=== PATIENT | male | born 1970 | race Caucasian/White ===

== ENCOUNTER 2017-08-16 08:20 | Observation (INO) | payer MEDICAID ==
[~2017-08-16] VITALS: Ht 182.9 cm; Wt 76.0 kg
[2017-08-16 09:26] LABS: HEMATOCRIT 43.5 % (39.2-51.8); HEMOGLOBIN 14.7 g/dL (13.7-18.0); WHITE BLOOD COUNT 7.9 x10^3/uL (3.4-10)
[2017-08-16 09:39] LABS: ASPARTATE AMINO TRANSFERASE 42 U/L (15-37); BLOOD UREA NITROGEN 12 mg/dL (7-18)
[2017-08-16 09:41] LABS: ACETAMINOPHEN < 2 mcg/mL (10-30)
[2017-08-16 11:20] LABS: DAU SCREEN DISCLAIMER
[2017-08-16] MEDS ORDERED: LORazepam 1MG TABLET PO ONE (19:30)
[2017-08-16] MEDS: PLEASE ENTER ALLERGIES MC SCH ×2 (20:00)
[2017-08-16] MEDS ORDERED: DOCUSATE 100 MG CAPSULE PO PRN (23:00)
[2017-08-16] MEDS ORDERED: ZIPRASIDONE 20 MG INJ IM PRN (23:00)
[2017-08-16] MEDS ORDERED: ACETAMINOPHEN 325 MG TABLET PO PRN (23:00)
[2017-08-16] MEDS ORDERED: QUETIAPINE 25MG TABLET PO PRN (23:00)
[2017-08-17] MEDS ORDERED: SENNA/DOCUSATE TABLET PO SCH (09:00)
[2017-08-17] MEDS ORDERED: GABA300C10 PO (16:04)
[2017-08-17] MEDS ORDERED: LEVE500T53 PO (16:04)
[2017-08-17] MEDS ORDERED: ESCI20TA10 PO (16:04)
[2017-08-17] MEDS: PLEASE ENTER ALLERGIES MC SCH ×2 (16:46)
[2017-08-17] MEDS ORDERED: LORazepam 1MG TABLET ONE (17:11)
[2017-08-17 22:27] VITALS: BP 118/69
== END 2017-08-17 22:28 ==
LOC: ED 13:28 → EDIP 19:13 → INTOOBSV 19:13
PROVIDERS: ADMIT Surgery; ATTEND Surgery
DX: T42.6X2A Poisoning by other antiepileptic and sedative-hypnotic drugs, intentional self-harm, initial encounter (principal); T43.222A Poisoning by selective serotonin reuptake inhibitors, intentional self-harm, initial encounter; T39.312A Poisoning by propionic acid derivatives, intentional self-harm, initial encounter; R56.9 Unspecified convulsions; F33.2 Major depressive disorder, recurrent severe without psychotic features; F10.220 Alcohol dependence with intoxication, uncomplicated; F15.20 Other stimulant dependence, uncomplicated; F17.210 Nicotine dependence, cigarettes, uncomplicated; Y92.89 Other specified places as the place of occurrence of the external cause; Z87.820 Personal history of traumatic brain injury; F10.10 Alcohol abuse, uncomplicated
CPT/HCPCS: 36415; 80053; 80177; 80307; 80329; 81003; 82140; 85025; 93005; 99285; G0378; G0479; G0480

== ENCOUNTER 2017-10-10 23:55 | Emergency (ER) | payer MEDICAID ==
[~2017-10-10] VITALS: Ht 188 cm; Wt 73.0 kg
[2017-10-10 23:55] VITALS: BP 132/74
[~2017-10-10 23:55] MED LIST: ESCI20TA10 PO; GABA300C10 PO; LEVE500T53 PO
[2017-10-11] MEDS ORDERED: LEVETIRACETAM 500 MG TABLET PO STA (00:06)
== END 2017-10-11 02:02 | disposition home or self-care (01) ==
LOC: ED 10-11 00:33 → MERGE 10-11 00:33 → ED 10-11 02:02
DX: Z76.0 Encounter for issue of repeat prescription (principal); F10.220 Alcohol dependence with intoxication, uncomplicated
CPT/HCPCS: 99283

== ENCOUNTER 2017-10-13 04:47 | Emergency (ER) | payer MEDICAID ==
[~2017-10-13] VITALS: Ht 182.9 cm; Wt 72.6 kg
[2017-10-13] MEDS ORDERED: LEVE500T53 PO (05:02)
[2017-10-13] MEDS ORDERED: GABA300C10 PO (05:02)
[2017-10-13] MEDS ORDERED: DIPH,PERTUSS(ACELL),TET VAC/PF 0.5 ML IM-VACC ONE ×2 (05:28→05:30)
[2017-10-13] MEDS ORDERED: ACETAMINOPHEN 325 MG TABLET ONE (05:28)
[2017-10-13] MEDS ORDERED: ACETAMINOPHEN 325 MG TABLET PO ONE (05:30)
[2017-10-13 06:21] VITALS: BP 110/66
== END 2017-10-13 06:33 | disposition home or self-care (01) ==
LOC: ED 05:27 → MERGE 05:27 → ED 06:33
DX: T23.212A Burn of second degree of left thumb (nail), initial encounter (principal); T31.0 Burns involving less than 10% of body surface; X15.8XXA Contact with other hot household appliances, initial encounter; Y93.89 Activity, other specified; Y92.89 Other specified places as the place of occurrence of the external cause; Y99.8 Other external cause status
CPT/HCPCS: 90471; 90715

== ENCOUNTER 2017-10-23 00:11 | Emergency (ER) | payer MEDICAID ==
[~2017-10-23] VITALS: Ht 167.6 cm; Wt 70.0 kg
[2017-10-23 01:00] LABS: BASOPHILS # (AUTO) 0.09 x10^3/uL (0-0.1); BASOPHILS % (AUTO) 1 % (0-1); EOSINOPHILS # (AUTO) 0.19 x10^3/uL (0-0.4); EOSINOPHILS % (AUTO) 2 % (1-7); LYMPHOCYTES # (AUTO) 3.47 x10^3/uL (1-3.4); LYMPHOCYTES % (AUTO) 44 % (22-44); MD NO; MEAN CORPUSCULAR HEMOGLOBIN 33.8 pg (27.5-34.5); MEAN CORPUSCULAR HGB CONC 34.1 g/dL (33.2-36.2); MEAN CORPUSCULAR VOLUME 99.1 fL (81-97); MEAN PLATELET VOLUME 7.8 fL (7.4-10.4); MONOCYTES # (AUTO) 0.54 x10^3/uL (0.2-0.8); MONOCYTES % (AUTO) 7 % (2-9); NEUTROPHILS # (AUTO) 3.67 x10^3/uL (1.8-6.8); NEUTROPHILS % (AUTO) 46 % (42-75); PLATELET COUNT 229 x10^3/uL (130-400); RED BLOOD COUNT 4.19 x10^6/uL (4.38-5.82); RED CELL DISTRIBUTION WIDTH 15.3 % (9.4-14.8)
[2017-10-23 01:10] LABS: ANION GAP 9 mmol/L (5-15); CALCIUM 8.3 mg/dL (8.5-10.1); CHLORIDE 112 mmol/L (98-107); CREATININE 0.75 mg/dL (0.7-1.3)
[2017-10-23 01:16] VITALS: BP 108/68
== END 2017-10-23 06:21 | disposition home or self-care (01) ==
LOC: ED 00:22
DX: S09.8XXA Other specified injuries of head, initial encounter (principal); F10.121 Alcohol abuse with intoxication delirium; X58.XXXA Exposure to other specified factors, initial encounter; Y93.89 Activity, other specified; Y92.481 Parking lot as the place of occurrence of the external cause; Y99.8 Other external cause status
CPT/HCPCS: 36415; 70450; 80048; 80307; 85025; 99285

== ENCOUNTER 2017-10-23 09:45 | Observation (INO) | payer MEDICAID ==
[~2017-10-23] VITALS: Ht 182.9 cm; Wt 75.0 kg
[2017-10-23 10:36] LABS: BASOPHILS # (AUTO) 0.07 x10^3/uL (0-0.1); BASOPHILS % (AUTO) 1 % (0-1); EOSINOPHILS # (AUTO) 0.13 x10^3/uL (0-0.4); EOSINOPHILS % (AUTO) 2 % (1-7); LYMPHOCYTES # (AUTO) 3.06 x10^3/uL (1-3.4); LYMPHOCYTES % (AUTO) 41 % (22-44); MD NO; MEAN CORPUSCULAR HEMOGLOBIN 34.5 pg (27.5-34.5); MEAN CORPUSCULAR HGB CONC 34.9 g/dL (33.2-36.2); MEAN CORPUSCULAR VOLUME 98.9 fL (81-97); MEAN PLATELET VOLUME 7.8 fL (7.4-10.4); MONOCYTES # (AUTO) 0.64 x10^3/uL (0.2-0.8); MONOCYTES % (AUTO) 9 % (2-9); NEUTROPHILS # (AUTO) 3.56 x10^3/uL (1.8-6.8); NEUTROPHILS % (AUTO) 48 % (42-75); PLATELET COUNT 244 x10^3/uL (130-400); RED BLOOD COUNT 4.26 x10^6/uL (4.38-5.82); RED CELL DISTRIBUTION WIDTH 15.2 % (9.4-14.8)
[2017-10-23 10:47] LABS: ALBUMIN 3.7 g/dL (3.4-5.0); ANION GAP 6 mmol/L (5-15); CALCIUM 8.9 mg/dL (8.5-10.1); CHLORIDE 107 mmol/L (98-107); SALICYLATE LEVEL 3.8 mg/dL (2.8-20.0)
[2017-10-23 10:49] LABS: ACETAMINOPHEN < 2 mcg/mL (10-30)
[2017-10-23 11:10] LABS: AMPHETAMINE SCREEN, URINE Negative (Negative); BARBITURATE SCREEN, URINE Negative (Negative); BENZODIAZEPINE SCREEN, URINE Negative (Negative); CANNABINOID SCREEN, URINE Negative (Negative); COCAINE SCREEN, URINE Negative (Negative); METHADONE SCREEN, URINE Negative (Negative); OPIATE SCREEN, URINE Negative (Negative)
[2017-10-23] MEDS ORDERED: ACETAMINOPHEN 325 MG TABLET PO PRN (15:00)
[2017-10-23] MEDS ORDERED: LORazepam 2 MG/ML, 1ML IM PRN ×2 (15:00)
[2017-10-23] MEDS ORDERED: LORazepam 1MG TABLET PO PRN (15:00)
[2017-10-23] MEDS ORDERED: NICOTINE 21 MG/24 HR PATCH.TD24 TD SCH (15:00)
[2017-10-23] MEDS ORDERED: NICOTINE 21 MG/24 HR PATCH.TD24 ONE (16:48)
[2017-10-23 19:47] VITALS: BP 136/59
[2017-10-23] MEDS ORDERED: GABAPENTIN 300 MG CAPSULE PO SCH (21:00)
[2017-10-23] MEDS ORDERED: LEVETIRACETAM 500 MG TABLET PO SCH (21:00)
[2017-10-24] MEDS ORDERED: TEMPLATE NON-FORMULARY MED. (Escitalopram Oxalate** (Lexapro**) 20 MG) PO SCH (09:00)
[2017-10-24] MEDS ORDERED: FOLIC ACID 1 MG TABLET PO SCH (09:00)
[2017-10-24] MEDS ORDERED: THIAMINE 100MG TABLET PO SCH (09:00)
[2017-10-24] MEDS ORDERED: MULTIVITAMIN 1 TABLET PO SCH (09:00)
== END 2017-10-23 19:52 | disposition home or self-care (01) ==
LOC: ED 10:19 → EDIP 12:37
PROVIDERS: ADMIT Internal Medicine; ATTEND Internal Medicine
DX: R45.851 Suicidal ideations (principal); F32.9 Major depressive disorder, single episode, unspecified; F90.9 Attention-deficit hyperactivity disorder, unspecified type; G40.909 Epilepsy, unspecified, not intractable, without status epilepticus; F10.10 Alcohol abuse, uncomplicated; F17.210 Nicotine dependence, cigarettes, uncomplicated; Z87.820 Personal history of traumatic brain injury; Z59.0 Homelessness; Z91.5 Personal history of self-harm
CPT/HCPCS: 36415; 80048; 80307; 80329; 82040; 85025; 99285; G0378; G0480

== ENCOUNTER 2017-11-12 19:41 | Emergency (ER) | payer MEDICAID ==
[~2017-11-12] VITALS: Ht 182.9 cm; Wt 78.0 kg
[2017-11-12 21:54] VITALS: BP 92/56
== END 2017-11-12 21:56 | disposition home or self-care (01) ==
LOC: ED 21:18
DX: S16.1XXA Strain of muscle, fascia and tendon at neck level, initial encounter (principal); S00.93XA Contusion of unspecified part of head, initial encounter; F10.220 Alcohol dependence with intoxication, uncomplicated; W01.0XXA Fall on same level from slipping, tripping and stumbling without subsequent striking against object, initial encounter; Y93.89 Activity, other specified; Y92.89 Other specified places as the place of occurrence of the external cause; Y99.8 Other external cause status
CPT/HCPCS: 70450; 72125; 99284